=== PATIENT | male | born 1990 | race Caucasian/White ===

== ENCOUNTER 2021-10-24 14:28 | Emergency (ER) | payer OTHER ==
[2021-10-24 14:55] VITALS: TEMP 97.5; BMI 31.0
[2021-10-24] MEDS ORDERED: SODIUM CHLORIDE 0.9% 500 ML INFUS.BAG IV ONE (16:46)
[2021-10-24] MEDS ORDERED: morphine CARPU-JECT 4 MG/1 ML DISP.SYRIN IVPUSH ONE (16:47)
[2021-10-24] MEDS ORDERED: PROPOFOL 200 MG/20 ML VIAL IVPUSH ONE (17:13)
[2021-10-24] MEDS ORDERED: PROPOFOL 20 ML ONE (17:32)
[2021-10-24 18:16] VITALS: BP 136/86; PULSE 70
== END 2021-10-24 19:44 | disposition home or self-care (01) ==
LOC: JERFT 14:28
PROC: 3E033NZ Introduction of Analgesics, Hypnotics, Sedatives into Peripheral Vein, Percutaneous Approach (ICD-10-PCS; principal; 2021-10-24)
PROC: 3E033GC Introduction of Other Therapeutic Substance into Peripheral Vein, Percutaneous Approach (ICD-10-PCS; 2021-10-24)
DX: S53.105A Unspecified dislocation of left ulnohumeral joint, initial encounter (principal); S52.125A Nondisplaced fracture of head of left radius, initial encounter for closed fracture
CPT/HCPCS: 73070-TC-LT-FY; 99284-25